=== PATIENT | female | born 1995 | race Caucasian/White ===

== ENCOUNTER 2020-07-25 09:19 | Day surgery (SDC) | payer OTHER ==
[~2020-07-25 09:19] MED LIST: PROPOFOL INJ 200 MG/20 ML VIAL IV ONE
[2020-07-25 10:38] VITALS: BP 109/65
--- NOTE | 2020-07-25 11:31 | Operative Report ---
Operative Report DATE OF SURGERY: 07/25/20 Operative Report: The risks benefits and alternatives of the procedure explained to the patient in detail and informed consent is obtained.A GIF Olympus video scope was inserted into the patient's mouth and hypopharynx ,the esophagus is identified intubated and insufflated ,the scope was then advanced through the esophagus stomach and duodenum, retroflexion maneuver is done ,the esophagus stomach and first and second portions of the duodenum examined PREOPERATIVE DIAGNOSIS: Gastroesophageal reflux disease, nausea vomiting POSTOPERATIVE DIAGNOSIS: Gastritis status post biopsy rule out Helicobacter pylori OPERATION: EGD with biopsy SURGEON: GAURI WEAVER ANESTHESIA: LMAC TISSUE REMOVED OR ALTERED: As noted above. COMPLICATIONS: None. ESTIMATED BLOOD LOSS: None. INTRAOPERATIVE FINDINGS: As noted above. PROCEDURE: Patient tolerated the procedure well. No immediate postprocedure complications are noted. Patient is discharged in good condition. Discharge date 07/25/2020. Discharge diet: Regular. Discharge activity: Regular. 2 to 3-week follow-up to discuss findings. Patient is instructed to call the office or proceed to the emergency room should there be any further problems or questions. Wait on the pathology.
[2020-07-25] MEDS ORDERED: ONDANSETRON HCL INJ/PF 4 MG/2 ML SDV ONE (14:08)
== END 2020-07-25 10:22 | disposition home or self-care (01) ==
LOC: OROUT 09:19
PROVIDERS: ATTEND Internal Medicine Gastroenterology
DX: K29.50 Unspecified chronic gastritis without bleeding (principal); K21.00 Gastro-esophageal reflux disease with esophagitis, without bleeding; Z83.79 Family history of other diseases of the digestive system; Z20.822 Contact with and (suspected) exposure to COVID-19
CPT/HCPCS: 43239; 88342 ×2; 88305 ×2; 00731; J2405; J2704; 731

== ENCOUNTER → 2020-07-29 | Outpatient (CLI) | payer OTHER ==
--- NOTE | 2020-07-29 11:45 | RADIOLOGY REPORT (SQ) ---
EXAM DESCRIPTION: U/S ABDOMEN LIMITED W/O DOP IMAGES COMPLETED DATE/TIME: 07/29/2020 11:17 am REASON FOR STUDY: (R11.2)NAUSEA WITH VOMITING, UNSPECIFIED R11.2 NAUSEA WITH VOMITING, UNSPECIFIED COMPARISON: None. TECHNIQUE: Dynamic and static grayscale images acquired of the abdomen and recorded on PACS. Additio nal selected color Doppler and spectral images recorded. LIMITATIONS: None. FINDINGS: PANCREAS: No masses. Visualized pancreatic duct normal caliber. LIVER: Focal rounded masslike area in the right lobe of liver measuring 6.9 x 5.8 x 6.5 cm. [place] is similar to surrounding hepatic parenchyma. LIVER VASCULATURE: Normal directional flow of the main portal vein and hepatic veins. GALLBLADDER: Small adherent stone or polyp measuring 5 x 3 x 4 mm. No wall thickening or pericholecy stic edema. ULTRASOUND-DETECTED RODRIGUEZ'S SIGN: Negative. INTRAHEPATIC DUCTS AND COMMON DUCT: CBD and intrahepatic ducts normal caliber. No filling defects. AORTA: No aneurysm. RIGHT KIDNEY: Normal size. Normal echogenicity. No solid or suspicious masses. No hydronephrosis. No calcifications. PERITONEAL AND RIGHT PLEURAL SPACE: No ascites or effusions. OTHER: No other significant findings. IMPRESSION: 6.9 x 5.8 x 6.5 cm suspicious area in the liver. In a patient this age differential inc lude focal nodule hyperplasia and adenoma. Other etiologies thought to be less likely but not exclud ed. Further evaluation with MRI or CT is recommended for further characterization through TECHNICAL DOCUMENTATION: JOB ID: [id number] 2010 [employer]- All Rights Reserved Reading location - IP/workstation name: [email or web address]
--- NOTE | 2020-07-29 14:28 | RADIOLOGY REPORT (SQ) ---
EXAM DESCRIPTION: NM HIDA SCAN WITH CCK IMAGES COMPLETED DATE/TIME: 07/29/2020 2:19 pm REASON FOR STUDY: (R11.2)NAUSEA WITH VOMITING, UNSPECIFIED R11.2 NAUSEA WITH VOMITING, UNSPECIFIED COMPARISON: Ultrasound done earlier the same day. RADIONUCLIDE AND DOSE: DOSAGE RADIONUCLIDE: 5.12 millicuries Tc99m Mebrofenin. DOSAGE CCK: 1.7 micrograms. DOSAGE MORPHINE: Not required. The route of agent administration: Intravenous TECHNIQUE: Serial imaging right upper quadrant up to 60 minutes following injection of radionuclide. CCK injected after gallbladder visualized. LIMITATIONS: None. FINDINGS: LIVER: Normal visualization without areas of photopenia. INTRA AND EXTRAHEPATIC BILE DUCTS: Normal accumulation of activity. GALLBLADDER: Normal visualization. Calculated Ejection Fraction of 15%. Below the normal value of 35 % or greater. PHYSICAL RESPONSE: Patients presenting complaint was reproduced. OTHER: No other significant finding. IMPRESSION: LOW GALLBLADDER EJECTION FRACTION. EVIDENCE FOR BILIARY DYSKINESIS. NO CYSTIC OR COMMO N DUCT OBSTRUCTION. TECHNICAL DOCUMENTATION: JOB ID: [id number] 2010 [employer]- All Rights Reserved Reading location - IP/workstation name: [email or web address]
== END ==
LOC: RAD 10:44
PROVIDERS: ATTEND Internal Medicine Gastroenterology
DX: R11.2 Nausea with vomiting, unspecified (principal); R93.2 Abnormal findings on diagnostic imaging of liver and biliary tract
CPT/HCPCS: 76705; 78227; J2805; A9537; Q9969

== ENCOUNTER → 2020-08-08 | Outpatient (CLI) | payer OTHER ==
--- NOTE | 2020-08-09 11:19 | RADIOLOGY REPORT (SQ) ---
EXAM DESCRIPTION: CT ABDOMEN COMBO IMAGES COMPLETED DATE/TIME: 08/09/2020 6:52 am REASON FOR STUDY: (K82.8)OTHER SPECIFIED DISEASES OF GALLBLADDER K82.8 OTHER SPECIFIED DISEASES OF GALLBLADDER COMPARISON: Abdominal ultrasound 07/29/2020 TECHNIQUE: CT scan of the abdomen performed with and without intravenous contrast, and without oral contrast. Contrasted imaging performed using helical scanning technique with dynamic intravenous cont rast injection. Images reviewed with lung, soft tissue, and bone windows. Reconstructed coronal and s agittal MPR images reviewed. Delayed images for evaluation of the urinary system also acquired and ev aluated. All images stored on PACS. All CT scanners at this facility use dose modulation, iterative reconstruction, and/or weight based d osing when appropriate to reduce radiation dose to as low as reasonably achievable (ALARA). [facility]: Dose Right [facility]: CareDose [facility]: Dose Right [facility]: Teradose 4D [facility]: NG Advantage CONTRAST TYPE AND DOSE: contrast/concentration: Isovue 350.00 mmol/ml; Total Contrast Delivered: 98. 0 ml; Total Saline Delivered: 72.0 ml RENAL FUNCTION: None required. The patient is less than 50 years old. RADIATION DOSE: CT Rad equipment meets quality standard of care and radiation dose reduction techniq ues were employed. CTDIvol: 9.0 - 9.2 mGy. DLP: 1043 mGy-cm.. LIMITATIONS: None. FINDINGS: NONCONTRASTED IMAGING: No significant renal or bladder calcifications. No other significan t organ calcifications. POSTCONTRASTED IMAGING: LOWER CHEST: Lung bases are clear. LIVER: Large slightly ill defined mass centrally in the liver measures approximately 7.3 x 7.8 by 7.1 cm. The larger peripheral component of the mass is faintly hyperenhancing compared to adjacent pare nchyma on initial enhanced images in with a central hypoattenuating scar. The mass appears nearly is odense to adjacent hepatic parenchyma on delayed and noncontrast imaging. There may be some mild anson kground hepatic steatosis. SPLEEN: Normal size. No focal lesions. PANCREAS: No masses. No significant calcifications. No adjacent inflammation or peripancreatic fluid collections. Pancreatic duct not dilated. GALLBLADDER: No identified stones by CT criteria. No inflammatory changes to suggest cholecystitis. No biliary dilatation. ADRENAL GLANDS: No significant masses or asymmetry. RIGHT KIDNEY AND URETER: No solid masses. No significant calcifications. No hydronephrosis or hyd roureter. LEFT KIDNEY AND URETER: No solid masses. No significant calcifications. No hydronephrosis or hydr oureter. AORTA AND VESSELS: No aneurysm. No dissection. Renal arteries, SMA, celiac without stenosis. RETROPERITONEUM: No retroperitoneal adenopathy, hemorrhage or masses. BOWEL AND PERITONEAL CAVITY: No masses or inflammatory changes. No free fluid or peritoneal masses. ABDOMINAL WALL: No masses. No hernias. BONES: No significant or acute findings. OTHER: No other significant finding. IMPRESSION: 1. Central liver mass measuring up to 7.8 cm has imaging features most suggestive of fo sukhwinder nodular hyperplasia. If indicated, MRI with Eovist could be performed for increased specificity. 2. Probable mild background hepatic steatosis. 3. No calcified gallstones. No biliary dilatation. TECHNICAL DOCUMENTATION: JOB ID: [id number] Quality ID # [id number]: Final reports with documentation of one or more dose reduction techniques (e.g., Au tomated exposure control, adjustment of the mA and/or kV according to patient size, use of iterative reconstruction technique) 2010 [employer]- All Rights Reserved Reading location - IP/workstation name: [email or web address]
== END ==
LOC: RAD 14:49
PROVIDERS: ATTEND Internal Medicine Gastroenterology
DX: K82.8 Other specified diseases of gallbladder (principal)
CPT/HCPCS: 74170; 74178